=== PATIENT | male | born 1965 ===

== ENCOUNTER 2024-06-23 07:22 | Outpatient (CLI) | payer OTHER, SELFPAY | END 2024-06-23 07:23 | disposition home or self-care (01) | LOC: AMB 07-09 02:32 | PROVIDERS: Visit Provider Internal Medicine | DX: T14.90XA Injury, unspecified, initial encounter (principal); V47.0XXA Car driver injured in collision with fixed or stationary object in nontraffic accident, initial encounter; Y92.411 Interstate highway as the place of occurrence of the external cause | CPT/HCPCS: A0998 ==